=== PATIENT | female | born 1970 | race Caucasian/White ===

== ENCOUNTER → 2016-03-08 | Outpatient (CLI) | payer SELFPAY ==
[2016-03-08 11:42] LABS: BASOPHILS # (AUTO) 0.03 10*3/UL; BASOPHILS % (AUTO) 0.4 % (0-1); EOSINOPHILS % (AUTO) 2.4 % (0-8); HEMATOCRIT 45.6 % (37.0-47.0); HEMOGLOBIN 15.4 g/dL (12.0-16.0); IMM GRAN % (AUTO) 0.1 % (0-5); IMM GRAN# (AUTO) 0.01 10*3/UL; LYMPHOCYTES # (AUTO) 2.52 10*3/uL; LYMPHOCYTES % (AUTO) 33.2 % (10-50); MEAN CORPUSCULAR HEMOGLOBIN 30.3 PG (27-31); MEAN CORPUSCULAR HGB CONC 33.8 g/dL (33-37); MEAN PLATELET VOLUME 9.7 FL (7.4-12.2); MONOCYTES # (AUTO) 0.81 10*3/UL (0.3-0.8); MONOCYTES % (AUTO) 10.7 % (5-15); NEUTROPHILS # (AUTO) 4.04 10*3/UL; NEUTROPHILS % (AUTO) 53.2 % (50-80); RDW COEFFICIENT OF VARIATION 13.1 % (11.5-14.5); RED BLOOD COUNT 5.09 10^6/uL (4.20-5.40); WHITE BLOOD COUNT 7.59 10^3/uL (4.8-10.8)
[2016-03-08 11:45] LABS: PLATELET MORPHOLOGY COMMENT NORMAL MORPHOLOGY (NORM)
[2016-03-08 11:59] LABS: ASPARTATE AMINO TRANSFERASE 19 IU/L (8-39); BLOOD UREA NITROGEN 20 mg/dL (7-22); CALCIUM 9.4 mg/dL (8.7-10.7); CHLORIDE 104 meq/L (98-112); CREATININE 0.8 mg/dL (0.50-1.20); EST GLOMERULAR FILTRATION > 60 (>60 ml/min/1.73m(2)); GLUCOSE 97 mg/dL (78-110); SODIUM 138 meq/L (135-145); TOTAL PROTEIN 7.4 g/dL (6.1-8.0)
--- NOTE | 2016-03-08 13:42 | DI ---
History: Abdominal pain. Procedure: Study performed in the presence of intravenous contrast material with axial imaging, sagit kang and coronal reconstructions from the data set. Prior study dated 08/08/15 available for comparison. CTDI 15.4, DLP 848.9. Findings: Senior Front [employer] shows no bowel loop dilatation, surgical clips right upper quadrant, consistent with cholecystectomy performed last year. There is a large amount of retained food material in the stomach. The gallbladder has been resected. The liver appears normal except for what appears to be a partially opacified hemangioma in the center of the left hepatic lobe, image 39/170. It is 1.2 cm in diameter. The spleen is unremarkable. Neither adrenal gland is enlarged The pancreas appears normal. The left kidney is notable for a round 2 mm stone image 54/170. The right kidney is notable for a rou nd cyst image 61/170 measuring 1.8 cm in diameter and there is a 2 mm round stone lower pole right si de image 67/170. No calculus is noted in either ureter. Although there are some tiny vascular calcifications and phleb oliths observed. No hydronephrosis identified. Bowel loops are unremarkable. No evidence of inflammation. Prior hysterectomy. No diverticula are obs erved. The cecum lies directly over the bladder as the uterus is no longer present. The appendix is not visu alized. Impression: No focal acute inflammatory process. Each kidney contains one stone. There are calcificat ions in the pelvis but they do not strongly resemble ureteral origin. No obstruction. Evaluate for he maturia. Small stone in the 1 mm range may not be detectable Cholecystectomy. No inflammation observed in this area. Upper abdominal viscera notable for an single hemangioma in the left hepatic lobe. Prior hysterectomy.
== END ==
LOC: MOB LAB 11:06
PROVIDERS: ATTEND Physician Assistant
DX: R10.12 Left upper quadrant pain (principal)
CPT/HCPCS: 36415; 74177; 80053; 85025